=== PATIENT | male | born 1990 | race Two or more races ===

== ENCOUNTER 2022-07-10 05:11 | Emergency (ER) | payer OTHER ==
[2022-07-10 05:42] VITALS: BP 104/52; PULSE 60; RESP 20; TEMP 98; BMI 29.9
[2022-07-10] MEDS ORDERED: ONDANSETRON 4 MG/2 ML VIAL IVPUSH ONE (06:07)
[2022-07-10] MEDS ORDERED: ACETAMINOPHEN 1000 MG/100 ML BAG IVPB ONE (06:07)
[2022-07-10] MEDS ORDERED: LACTATED RINGERS SOLUTION 1000 ML INFUS.BAG IV ONE (06:08)
[2022-07-10] MEDS ORDERED: ONDANSETRON 4 MG/2 ML VIAL ONE (06:34)
[2022-07-10] MEDS ORDERED: ACETAMINOPHEN INJECTION 100 ML IVPB ONE (06:34)
[2022-07-10 07:31] LABS: HEMATOCRIT 42.9 % (35.4-49); HEMOGLOBIN 14.1 GM/dL (11.7-16.9); MCH 28.4 pg (25.7-33.7); MCHC 32.8 g/dl (32.0-35.9); MEAN CELL VOLUME 86.4 fl (80-96); MEAN PLT VOLUME 8.1 fl (7.5-11.1); PLATELET COUNT 296 10^3/uL (134-434); RBC 4.96 M/mm3 (4.00-5.60); RDW 13.9 % (11.9-15.9); WHITE BLOOD COUNT 15.7 K/mm3 (4.0-10.0)
[2022-07-10 07:45] LABS: ALBUMIN 4.5 g/dl (3.4-5.0); BLOOD UREA NITROGEN 15.6 mg/dL (7-18)
[2022-07-10 07:47] LABS: CREATININE 0.9 mg/dL (0.55-1.3)
[2022-07-10 07:49] LABS: BILIRUBIN,TOTAL 0.4 mg/dL (0.2-1); TOT PROT 8.3 g/dl (6.4-8.2)
[2022-07-10 09:12] LABS: ANISOCYTOSIS 0; HELMET CELLS 0; HOWELL-JOLLY BODIES 0; MACROCYTOSIS 0; OVALOCYTE 0; ROULEAU 0; SICKELED CELLS 0; TARGET CELLS 0; TEAR DROP CELLS 0; TOXIC GRANULATION 0
== END 2022-07-10 09:54 | disposition home or self-care (01) ==
LOC: JER 05:11
PROC: 3E033NZ Introduction of Analgesics, Hypnotics, Sedatives into Peripheral Vein, Percutaneous Approach (ICD-10-PCS; principal; 2022-07-10)
PROC: 3E033GC Introduction of Other Therapeutic Substance into Peripheral Vein, Percutaneous Approach (ICD-10-PCS; 2022-07-10)
DX: R10.9 Unspecified abdominal pain (principal); R11.2 Nausea with vomiting, unspecified; R19.7 Diarrhea, unspecified
CPT/HCPCS: 0241U-QW; 36415; 74176-TC; 80053; 83690; 85025; 93005; 93010; 99285-25